=== PATIENT | female | born 1930 | race Caucasian/White ===

== ENCOUNTER 2017-08-03 07:15 | Emergency (ER) | payer MEDICARE ==
[2017-08-03] MEDS ORDERED: cloNIDine 0.1 MG TAB ONE (07:46)
[2017-08-03] MEDS ORDERED: Oxymetazoline HCl 0.05% ( 15 ML ) ONE (07:50)
[2017-08-03 08:13] LABS: Hemoglobin 12.2 g/dL (12.0-16.0)
== END 2017-08-03 11:10 | disposition home or self-care (01) ==
LOC: ERS 07:15
DX: R04.0 Epistaxis (principal); I10 Essential (primary) hypertension; Z79.899 Other long term (current) drug therapy
CPT/HCPCS: 30903; 36415; 85014; 85018

== ENCOUNTER 2017-09-03 11:40 | Outpatient (CLI) | payer MEDICARE ==
--- NOTE | 2017-09-03 13:58 | ULT ---
ULTRASOUND WITH DOPPLER DUPLEX VENOUS LOWER EXTREMITIES BILATERAL: DATE: 09-03-17 HISTORY: 87-year-old female with bilateral lower extremity edema. TECHNIQUE: Color flow Doppler, spectral waveform analysis of pulsed Doppler, and mtz-scale imaging with mary ruddy and augmentation, were used to evaluate the bilateral common femoral, femoral, popliteal, coater ior tibial, and superficial femoral, veins; and the proximal portions of the profunda femoral and gre ater saphenous, veins. FINDINGS: There is normal compressibility, demonstration of blood flow by color Doppler and pulsed Doppler, and response to augmentation, in all interrogated veins. IMPRESSION: Negative. No deep vein thrombosis in the bilateral lower extremities. alverto POS: MAYELA
== END 2017-09-03 11:41 | disposition home or self-care (01) ==
LOC: SCSULT 11:40
PROVIDERS: ATTEND Specialist
DX: R60.9 Edema, unspecified (principal)
CPT/HCPCS: 93970

== ENCOUNTER 2017-09-27 13:17 | Outpatient (CLI) | payer MEDICARE ==
--- NOTE | 2017-09-27 14:28 | ULT ---
BILATERAL LOWER EXTREMITY ARTERIAL DOPPLER WITH SPECTRAL ANALYSIS AND COLOR FLOW EVALUATION: DATE: 09/27/17. HISTORY: Peripheral vascular disease. FINDINGS: Engle scale, color flow, Doppler evaluation, and spectral analysis of the bilateral lower extremity ar terial vessels is performed with 2D imaging. Waveform analysis demonstrates biphasic waveforms seen throughout the bilateral lower extremity arterial vessels from the level of the common femoral arteri es to the level of the tibial arteries with monophasic waveforms seen in each dorsalis pedis artery. No elevated peak systolic velocities are seen. There is decreased peak systolic velocity in the rig ht lower extremity profunda artery as well as the left lower extremity anterior tibial arteries which may be related to greater atherosclerotic vascular disease and narrowing proximal to the regions of the obtained velocity measurements. There are also decreased peak systolic velocities in the dorsali s pedis arteries. IMPRESSION: Diffuse atherosclerotic vascular disease throughout the bilateral lower extremity arterial vessels. There are areas of diminished peak systolic velocity in the right profunda femoral artery and left an terior tibial artery as well as each dorsalis pedis artery which may be related to greater degrees of atherosclerotic vascular disease and possibly areas of narrowing just proximal to the area of obtain ed velocity measurements. POS: MAYELA
== END 2017-09-27 13:18 | disposition home or self-care (01) ==
LOC: ULT 13:17
PROVIDERS: ATTEND Specialist
DX: I73.9 Peripheral vascular disease, unspecified (principal)
CPT/HCPCS: 93923

== ENCOUNTER 2017-10-30 08:21 | Outpatient (CLI) | payer MEDICARE ==
--- NOTE | 2017-10-30 11:05 | MRI ---
MRA BILATERAL LOWER EXTREMITIES WITH CONTRAST: Date: 10/30/17 COMPARISON: Lower extremity ultrasound dated 09/27/17. HISTORY: Peripheral vascular disease with abnormal appearance of both legs on lower extremity ultrasound. TECHNIQUE: A MRA of the bilateral lower extremities was performed with contrast. 3D rotation reformats and MIP r eformats were performed. FINDINGS: No significant irregularity is seen in the common iliac arteries, internal iliac arteries, or externa l iliac arteries. The common femoral arteries are intact without significant narrowing to suggest atherosclerotic disea se. The profunda femoral arteries and superficial femoral arteries are intact. There is mild irregula rity in the bilateral superficial femoral arteries, right greater than left, which may suggest mild d iffuse nonfocal atherosclerotic disease. The bilateral popliteal arteries demonstrate mild irregularity bilaterally consistent with mild diffu se nonfocal atherosclerotic disease. There is bilateral three vessel runoff. The anterior tibial melia lilia show moderate diffuse nonfocal atherosclerotic disease. IMPRESSION: 1. No significant proximal atherosclerotic disease. 2. Bilateral three vessel runoff. 3. Moderate nonfocal atherosclerotic disease in the bilateral anterior tibial arteries. POS: MAYELA
== END 2017-10-30 08:22 | disposition home or self-care (01) ==
LOC: MRI 08:21
PROVIDERS: ATTEND Specialist
DX: Z01.818 Encounter for other preprocedural examination (principal); I70.213 Atherosclerosis of native arteries of extremities with intermittent claudication, bilateral legs
CPT/HCPCS: 82565; C8912